=== PATIENT | female | born 1965 | race Caucasian/White ===

== ENCOUNTER 2024-11-01 14:17 | Emergency (ER) | payer MEDICAID ==
[~2024-11-01] VITALS: Ht 162.6 cm; Wt 70.0 kg
[2024-11-01 14:19] VITALS: TEMP 36.8; O2SAT 100
[2024-11-01] MEDS: KETOROLAC 30MG/ML VIAL IM ONE (16:16)
[2024-11-01] MEDS: CYCLOBENZAPRINE 10MG TABLET PO ONE (16:16)
[2024-11-01] MEDS: LIDOCAINE 5% PATCH TOP STA (16:17)
[2024-11-01] MEDS ORDERED: LIDO700A30 TP (17:50)
[2024-11-01] MEDS ORDERED: IBUP-2029 MT (17:50)
[2024-11-01] MEDS ORDERED: CYCL10TA21 MT (17:50)
[2024-11-01 18:01] VITALS: BP 118/66; PULSE 74; RESP 18; O2SAT 100
== END 2024-11-01 18:05 | disposition home or self-care (01) ==
LOC: ER 14:30
DX: M54.2 Cervicalgia (principal); M25.532 Pain in left wrist; M79.622 Pain in left upper arm; Z79.899 Other long term (current) drug therapy
CPT/HCPCS: 72040; 73110; 96372; 99284; J1885; Z7610